=== PATIENT | female | born 1955 | race Asian ===

== ENCOUNTER 2022-11-13 08:34 | Emergency (ER) | payer MEDICARE, OTHER ==
[~2022-11-13] VITALS: Ht 154.9 cm; Wt 86.4 kg
[2022-11-13] MEDS ORDERED: ACETAMINOPHEN 500 MG TABLET PO ONE (09:30)
[2022-11-13] MEDS ORDERED: KETOROLAC TROMETHAMINE 30 MG/ML VIAL IM ONE (09:30)
[2022-11-13] MEDS ORDERED: IBUP-2070 PO (09:54)
[2022-11-13 10:14] VITALS: BP 125/82
== END 2022-11-13 10:15 | disposition home or self-care (01) ==
LOC: EMS 08:37
DX: M77.8 Other enthesopathies, not elsewhere classified (principal); E11.9 Type 2 diabetes mellitus without complications; I10 Essential (primary) hypertension; Z98.890 Other specified postprocedural states
CPT/HCPCS: 99283; 82962; 96372; J1885